=== PATIENT | male | born 1990 | race Caucasian/White ===

== ENCOUNTER 2017-02-20 10:06 | Day surgery (SDC) | payer MEDICAID ==
--- NOTE | 2017-02-16 08:44 | PDGENHP ---
History and Physical - Chief Complaint Right Hip Pain - History of Present Illness 1. Bilateral~Femoroacetabular impingement (YASMANI) Cam type, L> symptomatic than R HISTORY OF PRESENT ILLNESS: Charois a 27 y.o.~very ~active male~who I have had the pleasure to consult on today.~I have enjoyed meeting him. He~lives in [place]. ~[employer] as a student at [employer]. ~He~is single; he~has no children. ~ Charoenjoys capoiera, running, weight training. Melquiades's left~hip pain started July~2014, with no~previous complaints~and with no~recalled trauma or injury. ~Melquiades began to establish a more active lifestyle in February 2014, when he started to have left hip pain approximately 4 months later. ~Charodoes not have~a known history of hip dysplasia. Presentation today is of~anterior left~hip pain. ~The hip does not~wake him~at night and does~click and catch on him. Sitting can be uncomfortable for him. Charodoes~report suffering from lower back pain episodes. Charohas~participated in physical therapy for the past year and has~tried other conservative measures including dry needling, chiropractic treatments and massage therapy. He~has not~received sufficient symptomatic improvement. Charohas~utilized medication for pain management, including NSAID. Charohas used medication for 3-4 weeks. Charonotes mild issues with the right hip Charounderstands that he~has a hip and pelvis problem which should be researched and wishes to get a better understanding of his~hip status, followed by an establishment of a treatment strategy, hoping he~would be able to get back to his~well being active life. History: Past medical history: ~ None which is relevant Relevant familial history: Mother and Father: High Cholesterol Past surgical history: None Charohas never received general anesthesia. I have reviewed, verified and agree with the past medical, surgical, family and social history. Current Medications:~has a current medication list which includes the following prescription(s): ibuprofen, modafinil, and multivitamin. ALLERGIES:~has No Known Allergies. Objective: Physical Examination: Charois 5 feet 11~inches tall and weighs~150~Lbs. Melquiades~is AAO x3; he~is well- nourished, in NAD. Skin is warm and dry. ~Breathing is non-labored. ~CV with RRR by pulse. Abdomen is soft, NTND. ~Currently, he~walks with a normal~gait. He ~has~no leg length discrepancy and presents~with mild~signs of joint laxity.~~ Beighton Score 3. ~He~is fit looking. ~~ Trendelenburg sign is negative and proprioception~is reduced, right~side. Lower spine examination is negative~for sciatic or femoral nerve irritation with negative~SLR &~femoral stretch tests. Range of motion of the spine is normal~for flexion, extension, and rotations, with no~associated pain. ~ SIJs examination is normal with abnormal bilateral~KATHARINA in relation and local tenderness. Strength, Sensation and pulses are normal - bilaterally Ankles and knees exams are normal~and no~mal-alignment is evident. Hip ROM (degrees): ER At 90~hip FL IR At 90~hip FL IR Neutral hip ER Neutral hip AB AD FL EX R 65 0 15 40 50 10 120 10 L 55 0 10 35 55 10 105 10 Specific hip and pelvis tests: Quadrant KATHARINA Roll Add. Longus R +++ +++ +++ +++ (hip capsule) L +++ >R +++ >R Negative +++ (hip capsule) Glut. Med ITB Pos. Imp R Negative (strong) Negative (strong) Negative (hip flexor tightness) L Negative (strong) Negative (strong) Negative Squeeze test measured strong Bony Symphysis pubis is pain free to touch while concentric activity of the rectus abdominis, does not~produce pain at its insertion. Ilio Psos specific tests are negative for pain during cycling for both hips~and remarkable for non painful snap Greater trochanteric burse is pain free on both hips. Piriformis tests: FAIR is negative, with no local signs of neuritis related to sciatic nerve. Thigh circumference is symmetric with no evidence for muscle atrophy on both~ sides. Hamstrings tests are negative~functional contraction and positive for tender to palpation~tendinopathy, left side. ~Hamstring muscle testing: strong bilaterally. On a daily basis, the following percentages reflect Melquiades's overall total pain: Left ~hip: 80 % Right hip : 20 % Imaging: Radiology studies which I~have personally reviewed, analyzed and measured are below: XR: AP of the hip and pelvis: Performed in a good~technique Coccyx to pubic symphysis distance 1.5 cm. 6 caudal Specific measurements show: NSA~ Lat. Cam LCE Lat. Pincer C.Over~sign Sharp's angle Head~Coverage % Sourcil~Angle ATDmm R N ++ 32 - 12-1 40 73 4 N L N ++ 35 - 12-1 37 75 2 N [place]~Lines are preserved. No Pathological signs are seen in the Symphysis Pubis. No Pathological signs are seen at the Ischial~tuberosity. ~~~~~~~~~~~~~ Pos. wall sign Sup. Lat. OA Joint Space-WBZ Joint Space-Medial NAD R ++ Negative 3.9 mm 3.7 mm 6.7 mm L + + 4.4 mm 3.5 mm 7.7 mm Sclerosis ~~Dysplasia Cysts ISS Comments R + Negative Negative ++ L + Negative Negative + X Table lateral: Anterior cam lesion is seen Impression and plan:Fide Mancillais a 27 y.o.~active male~suffering from symptomatic bilateral hip pain, Left ~>>>~Right, due to Bilateral~Femoroacetabular impingement (YASMANI) Cam type~ causing significant disability to him~and altering~his~sport and life activities. Physical examination, imaging, and his~story correspond with the diagnosis mentioned above. I have explained the diagnosis and its significance to Charoand we have discussed the various possible treatment options~and their implications~with him. These include proceeding with conservative treatment while continuing to modify his~activities to avoid aggravating the hip further, resuming anti pain medications or intra articular injections (when needed) which can give temporary relief and a hip arthroscopy aiming to address the above pathology. Charowill review the info presented. Charowill decide to proceed with the surgical treatment option hoping to address his~daily symptoms and disability and improve his~function. He~will schedule at his~convenience. ~ Melquiades will consider the option of pursuing a simultaneous bilateral hip arthroscopy to address pain, possible labral damage, and bony pathology involved with bilateral femoroacetabular impingment. CT with 3D recon will be done in order to evaluate femoral torsion and to pre plan an accurate and optimal volume and location of bony resection. Melquiades~is happy with this plan. I have also supplied him~with handouts, outlining the expected surgical treatment and rehab involved. I wish Melquiades~all the best, ~~ Shraddha Romero, ATC~ Douglas Hearn MD History Information - Allergies/Home Medication List Allergies/Adverse Reactions: peanut Allergy (Mild, Verified 02/14/17 13:38) Other-Enter Comments Home Medications: Herbals/Supplements -Info Only 02/14/17 [Last Taken 02/14/17] Lyrica 50mg (*) BID 02/14/17 [Last Taken Unknown] Propranolol HCl PRN 02/14/17 [Last Taken Unknown] Valium 5 MG (*) PRN 02/14/17 [Last Taken Unknown] I have personally reviewed and updated: medical history - Social History Smoking Status: Former smoker
[~2017-02-20 10:06] MED LIST: ACETAMINOPHEN 500 MG TAB PO ONE; BUPIVACAINE/EPI 0.25% 30 ML SDV ONE; PREGABALIN 150 MG CAP PO ONE; ceFAZolin 2 GM/DEXTROSE 100 ML IV ONE
--- NOTE | 2017-02-20 10:32 | PDANEPAE ---
ANE History of Present Illness R hip arthroscopy, femoroplasty, labral repair ANE Past Medical History - Cardiovascular History Hx Hypertension: No Hx Arrhythmias: No Hx Chest Pain: No Hx Coronary Artery / Peripheral Vascular Disease: No Hx CHF / Valvular Disease: No Hx Palpitations: No Cardiovascular History Comment: CP 2014, W/U NEGATIVE - Pulmonary History Hx COPD: No Hx Asthma/Reactive Airway Disease: No Hx Recent Upper Respiratory Infection: No Hx Oxygen in Use at Home: No Hx Sleep Apnea: Yes Sleep Apnea Screening Result - Last Documented: Positive Pulmonary History Comment: george postive uses oral appliance, instructed pt to bring dos - Neurologic History Hx Cerebrovascular Accident: No Hx Seizures: No Hx Dementia: No - Endocrine History Hx Diabetes: No - Renal History Hx Renal Disorders: No - Liver History Hx Hepatic Disorders: No - Neurological & Psychiatric Hx Hx Neurological and Psychiatric Disorders: Yes Neurological / Psychiatric History Comment: INSOMNIA. ANXIETY - Cancer History Hx Cancer: No - Congenital Disorder History Hx Congenital Disorders: No - GI History Hx Gastrointestinal Disorders: Yes Gastrointestinal History Comment: GERD. COLONOSCOPY FOR LOWER GI PROBLEMS, NO DX MADE AND PROBLEMS RESOLVED OF 2016 - Other Health History Other Health History: SEASONAL ALLERGIES. wears glasses - Chronic Pain History Chronic Pain: Yes (right hip) - Surgical History Prior Surgeries: 10/26/15 left hip arthroscopy with femoroplasty and labral repair with Inge- Jose Elias. WISDOM TOOTH EXTRACTION. COLONOSCOPY ANE Review of Systems Review of systems is: negative - Exercise capacity METS (RN): 4 METS ANE Patient History - Allergies Allergies/Adverse Reactions: peanut Allergy (Mild, Verified 02/14/17 13:38) Other-Enter Comments - Home Medications Home Medications: Herbals/Supplements -Info Only 02/14/17 [Last Taken 02/14/17] Lyrica 50mg (*) 50 mg PO BID 02/14/17 [Last Taken 02/19/17 21:00] Propranolol HCl PRN 02/14/17 [Last Taken Unknown] Valium 5 MG (*) 5 mg PO PRN 02/14/17 [Last Taken 02/19/17 21:00] - NPO status NPO Status: no food or drink >8 hours - Anes Hx Anes Hx: no prior problems - Smoking Hx Smoking Status: Former smoker - Family Anes Hx Family Anes Hx: none Family Hx Anesthesia Complications: none ANE Labs/Vital Signs - Vital Signs Height: 180.34 cm Weight: 77.111 kg ANE Physical Exam - Airway Neck exam: FROM Mallampati Score: Class 2 Mouth exam: normal dental/mouth exam - Pulmonary Pulmonary: no respiratory distress - Cardiovascular Cardiovascular: regular rate and rhythym - ASA Status ASA Status: II ANE Anesthesia Plan Anesthesia Plan: general endotracheal anesthesia
[2017-02-20] MEDS ORDERED: LR 1,000 ML IV ONE (11:31)
[2017-02-20] MEDS ORDERED: ONDANSETRON 4 MG/2 ML VIAL IVP ONE (12:15)
[2017-02-20] MEDS ORDERED: MIDAZOLAM 2 MG/2 ML VIAL IVP ONE (12:40)
[2017-02-20] MEDS ORDERED: HYDROmorphONE/DILAUDID 2 MG/ML INJ ONE (13:00)
[2017-02-20] MEDS ORDERED: DEXAMETHASONE 4 MG/ML VIAL ONE (13:00)
[2017-02-20] MEDS ORDERED: ONDANSETRON 4 MG/2 ML VIAL ONE (13:00)
[2017-02-20] MEDS ORDERED: SUGAMMADEX SODIUM 200 MG/2 ML VIAL IVP ONE (13:00)
[2017-02-20] MEDS ORDERED: ROCURONIUM 50 MG/5 ML VIAL ONE (13:00)
[2017-02-20] MEDS ORDERED: LIDOCAINE 2% 100 MG/5 ML SYR ONE (13:00)
[2017-02-20] MEDS ORDERED: fentaNYL 100 MCG/2 ML INJ ONE ×2 (13:01→17:38)
[2017-02-20] MEDS ORDERED: PROPOFOL 200 MG/20 ML VIAL ONE ×2 (13:01→16:04)
[2017-02-20] MEDS ORDERED: HYDROCODONE/APAP 5/325 TAB ONE (17:41)
[2017-02-20 17:48] VITALS: BP 126/91; RESP 12; TEMP 98.6
[2017-02-20] MEDS ORDERED: ACETAMINOPHEN 500 MG TAB PO PRN (17:58)
[2017-02-20] MEDS ORDERED: DEXAMETHASONE 4 MG/ML VIAL IVP PRN (17:58)
[2017-02-20] MEDS ORDERED: OXYCODONE/APAP 5/325 TAB PO PRN (17:58)
[2017-02-20] MEDS ORDERED: HYDROCODONE/APAP 5/325 TAB PO PRN (17:58)
[2017-02-20] MEDS ORDERED: NALOXONE HCL 0.4 MG/ML INJ IVP PRN (17:58)
[2017-02-20] MEDS ORDERED: PROMETHAZINE HCL 25 MG/ML INJ IVP PRN (17:58)
[2017-02-20] MEDS ORDERED: MEPERIDINE 25 MG/ML SYR IVP PRN (17:58)
[2017-02-20] MEDS ORDERED: HYDROmorphONE/DILAUDID 1 MG/ML SYR IVP PRN (17:58)
[2017-02-20] MEDS ORDERED: ONDANSETRON 4 MG/2 ML VIAL IVP PRN (17:58)
--- NOTE | 2017-02-20 18:01 | POSTANESTH ---
Post Anesthetic Evaluation Cardiovascular Status: Normal, Stable, Similar to Pre-Op Cond Respiratory Status: Normal, Stable, Similar to Pre-op Cond. Level of Consciousness/Mental Status: Can Participate in Eval, Mildly Sleepy, Arousable Pain Control: Inadeq, Add Tx Required Nausea/Vomiting Control: Adequate, Prn Tx Ordered Complications Possibly Related to Anesthesia: None Noted
[2017-02-20 18:05] VITALS: PULSE 94; O2SAT 94
[2017-02-20] MEDS: fentaNYL 100 MCG/2 ML INJ IVP PRN ×2 (18:08→18:13)
== END 2017-02-20 19:35 | disposition home or self-care (01) ==
LOC: FSGY 10:06
PROVIDERS: ATTEND Orthopaedic Surgery Sports Medicine
PROC: 0SQ94ZZ Repair Right Hip Joint, Percutaneous Endoscopic Approach (ICD-10-PCS; principal; 2017-02-20 11:30)
DX: M25.851 Other specified joint disorders, right hip (principal); Z87.891 Personal history of nicotine dependence
CPT/HCPCS: 29914; 29916; 76001; C1769; C1713; J0171; J0690; J1100; J1170; J2001; J2250; J2405; J2704; J3010

== ENCOUNTER → 2018-07-04 | Outpatient (CLI) | payer MEDICAID | LOC: FIMAGING 18:01 | PROVIDERS: ATTEND Orthopaedic Surgery Sports Medicine | DX: M25.551 Pain in right hip (principal) ==

== ENCOUNTER → 2018-08-01 | Outpatient (CLI) | payer MEDICAID | LOC: FIMAGING 11:02 | PROVIDERS: ATTEND Internal Medicine Gastroenterology | DX: R68.81 Early satiety (principal) | CPT/HCPCS: 78264; A9541 ==

== ENCOUNTER → 2018-09-03 | Outpatient (CLI) | payer MEDICAID | LOC: FCPNEURO 21:00 | PROVIDERS: ATTEND Psychiatry & Neurology Sleep Medicine | DX: G47.33 Obstructive sleep apnea (adult) (pediatric) (principal) ==